=== PATIENT | male | born 1995 | race Caucasian/White ===

== ENCOUNTER 2017-05-20 10:12 | Emergency (ER) | END 2017-05-20 15:29 | disposition home or self-care (01) | DX: S03.03XA Dislocation of jaw, bilateral, initial encounter (principal); X58.XXXA Exposure to other specified factors, initial encounter; Y92.9 Unspecified place or not applicable | CPT/HCPCS: 21480; 70110; 94770; 96374; 96375; J1170; J2405; Z7502; Z7610 ==